=== PATIENT | male | born 1985 | race Two or more races ===

== ENCOUNTER 2021-02-07 19:03 | Emergency (ER) | payer MEDICAID ==
[~2021-02-07] VITALS: Ht 170.2 cm; Wt 86.4 kg
[2021-02-07 20:28] VITALS: BP 146/76
== END 2021-02-07 20:35 | disposition home or self-care (01) ==
LOC: EMS 19:06
DX: R20.2 Paresthesia of skin (principal); R06.02 Shortness of breath
CPT/HCPCS: 99281; Z7502